=== PATIENT | female | born 1950 | race Caucasian/White ===

== ENCOUNTER 2016-10-16 09:07 | Emergency (ER) | payer OTHER ==
[~2016-10-16] VITALS: Ht 160 cm; Wt 77.1 kg
[2016-10-16 09:35] VITALS: BP 200/117
[2016-10-16] MEDS ORDERED: TYLENOL EXTRA500 MG ORAL (09:48)
[2016-10-16] MEDS ORDERED: TRAMADOL HCL50 MG ORAL (09:48)
[2016-10-16] MEDS ORDERED: SOMA350 MG PO (09:48)
[2016-10-16 09:53] VITALS: BP 134/71
[2016-10-16 09:55] VITALS: BP 134/71
--- NOTE | 2016-10-16 10:56 | Emergency Room Report ---
History of Present Illness General Chief Complaint: Upper Extremity Injury Source: Patient Present Illness HPI 66-year-old female presents ED complaining of left shoulder pain. States symptoms started yesterday. 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 Pain is throbbing, 8/10, radiating to the left neck. Worse with movement. Denies any chest pain shortness of breath. No other aggravating relieving factors. Denies any other associated symptoms Allergies: Coded Allergies: PENICILLINS (Verified Allergy, Unknown, 10/16/16) Patient History Past Medical History: HTN, asthma Past Surgical History: none Pertinent Family History: none Social History: Denies: alcohol use, drug use, smoking Now: No Immunizations: UTD Reviewed Nursing Documentation: PMH: Agreed, PSxH: Agreed Nursing Documentation-PMH Past Medical History: No History, Except For Hx Hypertension: Yes Hx Asthma: Yes Review of Systems All Other Systems: negative except mentioned in HPI Physical Exam Vital Signs Date Time Temp Pulse Resp B/P Pulse Ox O2 Delivery O2 Flow Rate FiO2 10/16/16 09:20 98.2 142 16 200/117 98 Room Air Sp02 EP Interpretation: reviewed, normal General Appearance: no apparent distress, alert, GCS 15, non-toxic Head: normocephalic Eyes: bilateral eye PERRL, bilateral eye normal inspection ENT: normal ENT inspection Neck: full range of motion, no bony tend, supple/symm/no masses, tender lateral Respiratory: chest non-tender, lungs clear, normal breath sounds, speaking full sentences Cardiovascular #1: regular rate, rhythm, no edema Gastrointestinal: normal inspection Rectal: deferred Genitourinary: no CVA tenderness Musculoskeletal: decreased range of motion - tender with abduction, tender - L shoulder Neurologic: alert, oriented x3, responsive, motor strength/tone normal, sensory intact, speech normal Psychiatric: normal inspection Skin: normal inspection Lymphatic: normal inspection Medical Decision Making Diagnostic Impression: Primary Impression: Left shoulder strain Qualified Codes: S46.912A - Strain of unspecified muscle, fascia and tendon at shoulder and upper arm level, left arm, initial encounter ER Course Hospital Course 66-year-old female presents to ED complaining of left shoulder/neck pain. no trauma Differential diagnoses include: Fracture, dislocation, sprain, contusion, bursitis Clinical course Patient placed on stretcher. After initial history, physical exam reveals an middle-aged female in no acute distress. There is some tenderness to the left shoulder worse with abduction. Radiating through the lateral neck. No bony tenderness. No sign of deformity. Full passive range of motion noted. No fracture likely Likely shoulder strain. Given Tylenol here. Diagnosis - L shoulder strain stable and discharged to home with prescription for tylenol, tramadol, soma. apply heat. avoid heavy lifting. Followup with PMD. Return to ED if symptoms recur or worsen Last Vital Signs Date Time Temp Pulse Resp B/P Pulse Ox O2 Delivery O2 Flow Rate FiO2 10/16/16 10:06 98.2 10/16/16 09:55 82 18 134/71 99 Room Air Status: improved Disposition: HOME, SELF-CARE Condition: Stable Scripts Carisoprodol* (SOMA*) 350 Mg Tablet 350 MG PO Q6H, #20 TAB Prov: MARKIE FLEMING M.D. 10/16/16 Tramadol Hcl* (ULTRAM*) 50 Mg Tablet 50 MG ORAL Q6H Y for For Pain, #20 TAB 0 Refills Prov: MARKIE FLEMING M.D. 10/16/16 Acetaminophen* (TYLENOL EXTRA STRENGTH*) 500 Mg Tablet 500 MG ORAL Q8H Y for Prn Headache/Temp > 101, #30 TAB 0 Refills Prov: MARKIE FLEMING M.D. 10/16/16 Departure Forms: Return to Work Return to Work Date: Oct 18, 2016 Other Restrictions: no heavy lifting. light duty Patient Instructions: Muscle Strain, [id number] MARKIE FLEMING M.D. Oct 16, 2016 10:56
== END 2016-10-16 10:06 | disposition home or self-care (01) ==
LOC: EMR 09:44
DX: S46.912A Strain of unspecified muscle, fascia and tendon at shoulder and upper arm level, left arm, initial encounter (principal); X50.0XXA Overexertion from strenuous movement or load, initial encounter; Y93.9 Activity, unspecified; Y99.0 Civilian activity done for income or pay; I10 Essential (primary) hypertension; J45.909 Unspecified asthma, uncomplicated; Z88.0 Allergy status to penicillin; M54.2 Cervicalgia
CPT/HCPCS: 99284